=== PATIENT | male | born 1975 | race Caucasian/White ===

== ENCOUNTER 2016-04-18 20:08 | Emergency (ER) | payer OTHER ==
[2016-04-18 20:26] VITALS: BP 129/82
--- NOTE | 2016-04-18 21:16 | ED EYE COMPLAINT ---
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 WORK RELATED. OCCURRED AT 1910 Triage Nurses Notes Reviewed? 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 He states his eye is been watery since, he denies wearing glasses or contacts he denies any left eye symptoms no fever no chills no rhinorrhea no facial swelling he denies possibility of foreign body to eye there are no modifying factors or associated symptoms otherwise. No visual changes (ELIJAH JIMENEZ) Past History Travel History Traveled to [place] past 21 day No Medical History Any Pertinent Medical History? see below for history Neurological: NONE EENT: NONE Cardiovascular: CHOL Respiratory: NONE Gastrointestinal: NONE Hepatic: NONE Renal: NONE Musculoskeletal: NONE Psychiatric: depression Endocrine: NONE Surgical History Surgical History: none Psychosocial History What is your primary language Frisian Tobacco Use: Never used Family History Hx Contributory? No (ELIJAH JIMENEZ) Review of Systems Review of Systems Constitutional: Reports: see HPI. All Other Systems: Reviewed and Negative Comments Review of systems: See HPI, All other systems negative. Constitutional, no chills no fever, no malaise HEENT: No visual changes no sore throat no congestion Cardiovascular: No chest pain , no palpitation Skin, no rashes, no change in skin Respiratory: No dyspnea no cough no sputum no hemoptysis GI: No nausea no vomiting, no diarrhea, : No dysuria Muscle skeletal: No joint pain, no back pain, no neck pain, Neurologic: No numbness no headache Psych: No stress Heme/endocrine: No bruising no bleeding Immunology: No lymphadenopathy (ELIJAH JIMENEZ) Physical Exam General Appearance: well developed/nourished, no apparent distress General Inspection: normal inspection Eyelid: normal inspection Conjunctiva/Sclera: normal inspection Cornea: normal inspection EOM: intact Pupil: normal accommodation, normal pupil, PERRL General Inspection: normal inspection Eyelid: normal inspection, everted for exam Conjunctiva/Sclera: normal inspection Cornea: normal inspection, examined w/fluorescein, abrasion EOM: intact Pupil: normal accommodation, normal pupil, PERRL Physical Exam Comments: Well-developed well-nourished patient in no apparent distress. HEENT: Atraumatic, extraocular motion intact Neck: Supple, FROM Back: FROM Cardiovascular: Regular rate and rhythms no murmurs rubs Respiratory: No respiratory distress. Patient speaking in full complete sentences. Breath sounds clear to auscultation bilaterally: NO W/R/R Extremities: full range of motion Neuro: Alert and oriented x3 Skin: Warm & dry;No appreciable rash on exposed skin Psych: Mood affect normal, normal memory normal judgment. (ELIJAH JIMENEZ) Progress Differential Diagnosis: corneal abrasion, corneal foreign body, conjunctivitis, detached retina, glaucoma, globe rupture Plan of Care: The eye was fluorescein stained after verbal consent was obtained tetracaine drops were instilled patient tolerated procedure well, The eyelids were everted, q tip was run under the eye lids, no visualized foreign body Discussed the patient with possibility for foreign body not seen on examination still exist prescription for Acular, Polytrim eyedrops were provided information for ophthalmology follow-up was provided advised return anytime sooner with any concerns answered all his questions. We'll plan clear discharge (ELIJAH JIMENEZ) Departure Departure Time of Disposition: 2136 Disposition: HOME OR SELF CARE Condition: Stable Clinical Impression Primary Impression: Corneal abrasion Referrals: ANA MATTSON,BALDEMAR Modi (PCP/Family) PRETTY MATTSON,PEACE Mann Additional Instructions: Polytrim eyedrops, and Acular as needed for pain and "compress or ice packs as needed. Follow-up with mine wedge sawyer Dr. OLSEN, or return to the emergency room with any concerns Departure Forms: Customer Survey Employee Industrial Accident General Discharge Information Prescriptions: Current Visit Scripts Ketorolac Tromethamine (Acular) 1 GTT OPH 4 TIMES/DAY #5 ML Polytrim (Polytrim Eye Drops) 1 GTT OPH Q6 #10 ML (ELIJAH JIMENEZ) PA/ICE HOCKEY COACH Co-Sign Statement Statement: ED Attending supervision documentation- [] I saw and evaluated the patient. I have also reviewed all the pertinent lab results and diagnostic results. I agree with the findings and the plan of care as documented in the PA's/ICE HOCKEY COACH's documentation. [X] I have reviewed the ED Record and agree with the PA's/ICE HOCKEY COACH's documentation. [] Additions or exceptions (if any) to the PAs/ICE HOCKEY COACH's note and plan are summarized below: [] (DODIE MATTSON,IMMANUEL)
[2016-04-18] MEDS ORDERED: POLYTRIM EYE DR10 ML OPH (21:38)
[2016-04-18] MEDS ORDERED: ACULAR5 ML OPH (21:38)
== END 2016-04-18 22:02 ==
LOC: ERH 20:08
DX: S05.01XA Injury of conjunctiva and corneal abrasion without foreign body, right eye, initial encounter (principal); W22.8XXA Striking against or struck by other objects, initial encounter